=== PATIENT | female | born 1975 | race Caucasian/White ===

== ENCOUNTER 2019-07-26 00:05 | Inpatient (IN) | payer SELFPAY ==
[2019-07-26] MEDS ORDERED: Ketorolac Tromethamine 30 MG/ML VIAL ONE (01:57)
[2019-07-26] MEDS ORDERED: Acetaminophen 325 MG TAB PO PRN (03:29)
[2019-07-26] MEDS ORDERED: Ondansetron PF 4 MG/2 ML Vial IVP PRN ×2 (03:29→03:43)
[2019-07-26] MEDS ORDERED: Sodium Chloride 0.9% 1,000 ML IV SCH ×4 (03:29→19:30)
[2019-07-26] MEDS ORDERED: Ondansetron ODT 4 MG TAB SL PRN (03:29)
[2019-07-26] MEDS ORDERED: Ibuprofen 200 MG TAB PO PRN (03:43)
[2019-07-26] MEDS ORDERED: Ondansetron ODT 4 MG TAB PO PRN (03:43)
[2019-07-26] MEDS ORDERED: hydrALAZINE 20 MG/ML VIAL SLOW IVP PRN (03:43)
[2019-07-26 04:04] VITALS: BMI 26.7
[2019-07-26] MEDS ORDERED: Ketorolac Tromethamine 30 MG/ML VIAL IVP SCH (04:15)
[2019-07-26] MEDS: Sodium Chloride 0.9% 1,000 ML IV SCH ×4 (04:45→23:10)
--- NOTE | 2019-07-26 05:23 | HP ---
PRIMARY CARE PROVIDER: Dr. Millard at the [facility]. CHIEF COMPLAINT: Fever and cough. HISTORY OF PRESENT ILLNESS: This is a 44-year-old female, who presented to [facility] Emergency Department in transfer from [facility] in [place], [place] after initially presenting with fever, body aches, and chills for approximately 1 week. The patient states she saw her primary care provider on 07/22 with persistent cough, general body aches, taking NyQuil and DayQuil for some relief of her symptoms. The patient states her symptoms progressed with limited activity, general fatigue and fever. The patient's cough persisted and patient generally was unable to continue doing normal activities. The patient denied any known sick contacts, travel history, or family members with similar symptoms. The patient states she was treated for pneumonia as a teenager, but no recurrence. The patient does smoke up to half a pack of cigarettes daily, but denied any chronic lung conditions. In the emergency room, the patient underwent general evaluation including plain radiographs of the chest showing dense consolidation of the right middle lobe. CT angiogram of the chest was also performed showing evidence of dense consolidation of the right middle lobe. The patient received intravenous normal saline as well as potassium bicarbonate, ibuprofen, Zofran, and fentanyl. The patient also received IV Rocephin and Zithromax after meeting sepsis criteria. PAST MEDICAL HISTORY: 1. Tobacco abuse. 2. Hypertension. PAST SURGICAL HISTORY: 1. Status post section x2. 2. Status post bilateral tubal ligation. CURRENT MEDICATIONS: Losartan/HCTZ 100/25 mg 1 tablet p.o. daily. ALLERGIES: NO KNOWN DRUG ALLERGIES. FAMILY HISTORY: Positive for hypertension. SOCIAL HISTORY: Resides in [place], [place]. . Smokes up to half a pack of cigarettes daily. Occasional alcohol use. No illicit drug use. REVIEW OF SYSTEMS: CONSTITUTIONAL: Negative for weight loss or gain, ability to conduct usual activities. SKIN: Negative for rash, itching. EYES: Negative for double vision, pain. ENT/MOUTH: Negative for nose bleeding, neck stiffness, pain, tenderness. CARDIOVASCULAR: Negative for palpitations, dyspnea on exertion, orthopnea. RESPIRATORY: Negative for shortness of breath, wheezing, cough, hemoptysis, fever or night sweats. GASTROINTESTINAL: Negative for poor appetite, abdominal pain, heartburn, nausea, vomiting, constipation, or diarrhea. GENITOURINARY: Negative for urgency, frequency, dysuria, nocturia. MUSCULOSKELETAL: Negative for pain, swelling. NEUROLOGIC/PSYCHIATRIC: Negative for anxiety, depression. ALLERGY/IMMUNOLOGIC: Negative for skin rash, bleeding tendency. Otherwise negative except as stated per HPI. PHYSICAL EXAMINATION: VITAL SIGNS: On admission, blood pressure 104/61, pulse 75, respiratory rate 18, temperature 99 degrees Fahrenheit, and O2 saturation 96% on room air. GENERAL APPEARANCE: This is a 44-year-old female, alert and oriented x3, pleasant, in mild distress. HEENT: Pupils are equal, round, reactive to light and accommodation. Extraocular muscles are intact. No scleral icterus. No conjunctival injection. Nares patent. OP is clear. Teeth in fair repair. NECK: Supple. No cervical adenopathy. No thyromegaly. No carotid bruits. No JVD appreciated. Cervical spine with full active and passive range of motion. No meningeal signs noted. CHEST: Diminished breath sounds in the bases bilaterally. CARDIOVASCULAR: S1, S2 with tachycardia. ABDOMEN: Rounded, soft, nontender, and nondistended. Bowel sounds are positive in all 4 quadrants. There is no hepatosplenomegaly. No abdominal bruits. No rebound or guarding appreciated. EXTREMITIES: Warm and dry with fair turgor. No clubbing, cyanosis, or asymmetric edema appreciated. Pulses palpable distally at the dorsalis pedis, posterior tibial, and popliteal arteries bilaterally. Capillary refill less than 2 seconds. NEUROLOGIC: Cranial nerves 2 through 12 are grossly intact. No focal or lateralizing signs appreciated. PERTINENT LABORATORY AND X-RAY FINDINGS: Sodium 133, potassium 3.1, chloride 101, CO2 of 19, BUN 15, creatinine 0.93, calcium 9.3. LFTs within normal limits. Glucose 185. Influenza A and B antigen negative on 07/25/2019. Troponin I negative x1. CBC showed a white blood cell count of 36.1, hemoglobin 10.6, hematocrit 31, MCV 85, platelet count 308 with 89% neutrophils. Lactic acid level 1.3. PT 16.3, INR 1.3. CT of the chest dated 07/25/2019, showed dense consolidation in the medial aspect of the right middle lobe. 1 cm poorly defined hypodense in the right hepatic lobe. CT of the abdomen and pelvis showed enlarged heterogeneous uterus consistent with a solitary fibroid. EKG dated 07/25/2019, by my interpretation shows sinus tachycardia with heart rates in the 110s. Normal R-wave progression noted in the precordial leads. Normal axis. No acute ST-T wave changes appreciated. ASSESSMENT AND PLAN: 1. Sepsis secondarily to pneumonia. The patient will be admitted to the medical floor. We will continue IV fluids with normal saline at 150 mL/h. Continue Rocephin 2 g IV q.24 hours with additional Zithromax 500 mg IV daily. Blood and urine cultures pending. Continue aggressive supportive management and monitor clinical response. 2. Hypotension secondary to #1. Improved and responsive to IV fluid administration. We will continue IV fluids as outlined previously and hold home blood pressure medications. Serial blood pressure monitoring. 3. Tobacco abuse. We will offer smoking cessation resources prior to discharge. 4. Sinus tachycardia secondarily to #1. Continue general monitoring. Continue IV fluids and monitor clinical response. 5. Prophylaxis. SCDs while in bed. Influenza and pneumonia vaccinations prior to discharge. CODE STATUS: Full. Surrogate medical decision maker is the patient's spouse. Job ID: [id number]
[2019-07-26] MEDS: Famotidine 20 MG TAB PO SCH ×2 (08:07→20:10)
--- NOTE | 2019-07-26 08:11 | RAD ---
Portable chest: HISTORY: Pneumonia follow-up COMPARISON: none FINDINGS:There is suggestion of hazy infiltrate in the right lung base. No confluent consolidation. N o effusion. Upper lung zones are clear. IMPRESSION:Question hazy infiltrate in the right lung base. Suggest follow-up upright PA and lateral views of chest.
[2019-07-26] MEDS ORDERED: FLU VACC QS2019-20(6MOS UP)/PF 60 MCG/0.5 ML SYRINGE IM ONE (09:00)
[2019-07-26 10:05] LABS: Hemoglobin 8.6 g/dL (12.0-16.0); Mean Corpuscular HGB CONC 33.2 g/dL (32.0-36.0); Mean Corpuscular Volume 90.3 fL (78.0-98.0); Mean Platelet Volume 7.7 fL (7.4-10.4); Platelet Count 259 thou/uL (130-400); RBC Distribution Width 14.5 % (11.5-14.5); Red Blood Cell (RBC) Count 2.87 mill/uL (4.20-5.40)
[2019-07-26] MEDS: Benzonatate 100 MG CAP PO SCH ×3 (10:18→20:09)
[2019-07-26] MEDS: guaiFENesin ER 600 MG TAB PO SCH ×2 (10:18→20:11)
[2019-07-26 10:28] LABS: Band 9 % (5-11); Eosinophils 1 % (0-10); Lymphocytes 3 % (21-51); MDiff Complete? YES; Monocytes 2 % (0-10); Neutrophil 84 % (42-75); Platelet Morphology Comment Appears Adequate; RBC Morphology Normal; Reactive Lymphocytes 1 % (0-10); White Blood Cell (WBC) Count 33.6 thou/uL (4.8-10.8)
[2019-07-26 10:29] LABS: ALT (SGPT) 11 U/L (8-55); AST (SGOT) 9 U/L (5-34); Albumin 2.7 g/dL (3.5-5.0); Alkaline Phosphatase 72 U/L (40-110); Anion Gap 9 mmol/L (10-20); BUN (Urea Nitrogen) 15 mg/dL (7.0-18.7); Bilirubin, Total 0.4 mg/dL (0.2-1.2); Calc. Creatinine Clearance 114 mL/min (70-130); Calcium 7.2 mg/dL (7.8-10.44); Carbon Dioxide 18 mmol/L (22-29); Chloride 112 mmol/L (98-107); Estimated GFR-MDRD 84; Globulin 2.5 g/dL (2.4-3.5); Glucose 116 mg/dL (70-105); Potassium 3.4 mmol/L (3.5-5.1); Protein, Total 5.2 g/dL (6.0-8.3); Sodium 136 mmol/L (136-145)
[2019-07-26 10:45] LABS: HIV (1/2) Antibody/Antigen Non-Reactive (NonReactive)
[2019-07-26] MEDS: Ketorolac Tromethamine 30 MG/ML VIAL IVP SCH ×3 (11:37→23:35)
--- NOTE | 2019-07-26 12:29 | CON ---
DATE OF CONSULTATION: 07/26/2019 This consultation is for Dr. Davila. REASON FOR CONSULTATION: Pneumonia. HISTORY OF PRESENT ILLNESS: Su is A 44-year-old female from [facility]. She has been feeling ill since Monday. She went and saw her Family Medicine doctor and had a workup for strep throat, which was negative. She was sent home on [id number] therapy. She has worsened over the last 2 days to the point, where she came to the hospital. She had a CT scan done in [place], which is not available for my review. The scan apparently showed a right middle lobe infiltrate. Chest x-ray here also shows some haziness in the right lower lobe. She was given some antibiotics. She does feel better. She was able to keep her meal down this morning and she has defervesced. Associated symptoms included fever, shortness of breath, and right-sided chest pain. PAST MEDICAL HISTORY: Hypertension. PAST SURGICAL HISTORY: 1. . 2. Tubal ligation. MEDICATIONS: Prior to admission, losartan/hydrochlorothiazide 100/25 one daily. ALLERGIES: NONE. FAMILY MEDICAL HISTORY: Remarkable for hypertension. SOCIAL HISTORY: She is . Smokes about a half pack per day. 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 She has several other children, some grown, some still at home. REVIEW OF SYSTEMS: Twelve-point review of systems otherwise negative except for that mentioned above. PHYSICAL EXAMINATION: VITAL SIGNS: Her temperature is 98.5, pulse 96, respirations 18, O2 saturation 95%, and blood pressure 95/61. GENERAL: She appears acutely ill, but in no obvious respiratory distress. HEENT: Pupils are reactive. Sclerae are anicteric. Oropharynx is clear. NECK: No adenopathy or JVD. LUNGS: She has inspiratory crackles anteriorly on the right. Posteriorly, she has clear bilaterally. CARDIAC: S1 and S2. Regular. ABDOMEN: Soft, nontender, and nondistended. EXTREMITIES: No clubbing, cyanosis, or edema. NEUROLOGIC: Nonfocal. SKIN: Shows no lesions. LABORATORY DATA: Sodium 136, potassium 3.4, chloride 112, CO2 of 18, BUN 15, creatinine 0.7, and glucose 116. Cortisol level 25.6. HIV test nonreactive. White blood cell count 33.6, hematocrit 26, and platelet count 259. I reviewed her chest x-ray personally. Cultures have not resulted yet. ASSESSMENT: Community-acquired pneumonia. Most likely organism would be Pneumococcus. RECOMMENDATION: I agree with current treatment including the azithromycin, ceftriaxone, and oxygen. There is really no role for serial x-rays unless she develops signs indicative of pleural effusion. Hopefully, she will improve to the point where she can be discharged in 1 to 2 days. Job ID: [id number]
--- NOTE | 2019-07-26 13:54 | PDOC.HOSPP ---
- Subjective Encounter Date: 07/26/19 Encounter Time: 07:35 Subjective: sob+, has trouble bringing up sputum - Objective Vital Signs & Weight: Vital Signs (12 hours) Temp Pulse Resp BP BP Pulse Ox 07/26/19 12:34 98 07/26/19 12:31 95 16 98 07/26/19 11:42 98.5 F 96 18 95/61 95 07/26/19 08:00 93 L 07/26/19 07:17 98.9 F 116 H 17 90/54 L 93 L 07/26/19 06:54 96 07/26/19 06:27 98.8 F 113 H 20 91/56 L 96 07/26/19 05:51 100.1 F H 120 H 22 H 88/84 L 92 L 07/26/19 03:25 99.3 F 106 H 18 84/50 L 97 Weight Weight 165 lb 11.2 oz I&O: 07/25/19 07/26/19 07/27/19 06:59 06:59 06:59 Intake Total 3830 480 Balance 3830 480 Result Diagrams: 07/26/19 09:45 07/26/19 09:45 Hospitalist ROS - Medication Medications: Active Medications Generic Name Dose Route Start Last Admin Trade Name Freq PRN Reason Stop Dose Admin Albuterol/Ipratropium 3 ml 07/26/19 13:00 07/26/19 12:31 Duoneb NEB 3 ml [id number] MARTY Administration Benzonatate 100 mg 07/26/19 09:00 07/26/19 10:18 Tessalon PO 100 mg TID MARTY Administration Famotidine 20 mg 07/26/19 09:00 07/26/19 08:07 Pepcid PO 20 mg BID MARTY Administration Guaifenesin 600 mg 07/26/19 09:00 07/26/19 10:18 Mucinex PO 600 mg Q12HR MARTY Administration Sodium Chloride 1,000 mls @ 150 mls/hr 07/26/19 03:45 07/26/19 11:17 Normal Saline 0.9% IV 1,000 mls .Q6H40M MARTY Administration Ketorolac Tromethamine 30 mg 07/26/19 12:00 07/26/19 11:37 Toradol IVP 07/31/19 12:01 30 mg Q6HR MARTY Administration - Exam General Appearance: awake alert, ill appearing Eye: PERRL, anicteric sclera ENT: no oropharyngeal lesions, moist mucosa Neck: supple, symmetric Heart: RRR, no murmur Respiratory: no wheezes, no rales, rhonchi Gastrointestinal: soft, non-tender, non-distended, normal bowel sounds Extremities: no cyanosis, 1+ LE edema Neurological: cranial nerve grossly intact, no focal deficits Psychiatric: normal affect, A&O x 3 Hosp A/P (1) PNA (pneumonia) Code(s): J18.9 - PNEUMONIA, UNSPECIFIED ORGANISM Status: Acute Qualifiers: Laterality: right Lung location: middle lobe of lung (2) HTN (hypertension) Code(s): I10 - ESSENTIAL (PRIMARY) HYPERTENSION Status: Chronic Qualifiers: Hypertension type: essential hypertension Qualified Code(s): I10 - Essential (primary) hypertension (3) Sepsis Code(s): A41.9 - SEPSIS, UNSPECIFIED ORGANISM Status: Acute Qualifiers: Sepsis type: sepsis due to unspecified organism (4) Tobacco abuse Code(s): Z72.0 - TOBACCO USE Status: Chronic - Plan has recieved fluid resuscitation, sbp around 100-110, off antihtn meds likely has leukemoid reaction viral pcr pending on ceftriaxone, zithromax, nebs, toradol prn HIV is -ve d/w
[2019-07-26] MEDS: Acetaminophen 500 MG TAB PO PRN (17:13)
[2019-07-26] MEDS: cefTRIAXone\\ROCEPHIN 2 GM in Sodium Chloride 0.9% 100 ML IVPB SCH (20:38)
[2019-07-26] MEDS: Azithromycin 500 MG in Sodium Chloride 0.9% 250 ML 250 ML IVPB SCH (21:22)
[2019-07-26] MEDS ORDERED: Albumin 25% 25 GM/100 ML BOT IVPB SCH (22:00)
[2019-07-27] MEDS: Ketorolac Tromethamine 30 MG/ML VIAL IVP SCH ×4 (05:19→23:44)
[2019-07-27] MEDS: Sodium Chloride 0.9% 1,000 ML IV SCH ×3 (05:24→17:46)
[2019-07-27 06:44] LABS: Band 16 % (5-11); Hemoglobin 8.4 g/dL (12.0-16.0); Lymphocytes 4 % (21-51); MDiff Complete? YES; Mean Corpuscular HGB CONC 33.5 g/dL (32.0-36.0); Mean Corpuscular Volume 89.3 fL (78.0-98.0); Metamyelocyte 1 % (0-0); Monocytes 2 % (0-10); Neutrophil 77 % (42-75); Platelet Count 271 thou/uL (130-400); Platelet Morphology Comment Appears Adequate; RBC Distribution Width 14.5 % (11.5-14.5); Red Blood Cell (RBC) Count 2.81 mill/uL (4.20-5.40); White Blood Cell (WBC) Count 24.4 thou/uL (4.8-10.8)
[2019-07-27 07:01] LABS: ALT (SGPT) 10 U/L (8-55); AST (SGOT) 15 U/L (5-34); Albumin 2.9 g/dL (3.5-5.0); Alkaline Phosphatase 106 U/L (40-110); Anion Gap 11 mmol/L (10-20); BUN (Urea Nitrogen) 14 mg/dL (7.0-18.7); Bilirubin, Total 0.2 mg/dL (0.2-1.2); Calc. Creatinine Clearance 133 mL/min (70-130); Calcium 6.9 mg/dL (7.8-10.44); Carbon Dioxide 16 mmol/L (22-29); Chloride 116 mmol/L (98-107); Estimated GFR-MDRD Greater than 90; Globulin 2.5 g/dL (2.4-3.5); Glucose 109 mg/dL (70-105); Potassium 3.4 mmol/L (3.5-5.1); Protein, Total 5.4 g/dL (6.0-8.3); Sodium 140 mmol/L (136-145)
[2019-07-27] MEDS: Famotidine 20 MG TAB PO SCH ×2 (07:44→20:16)
[2019-07-27] MEDS: Benzonatate 100 MG CAP PO SCH ×3 (07:44→20:16)
[2019-07-27] MEDS: guaiFENesin ER 600 MG TAB PO SCH ×2 (07:44→20:17)
[2019-07-27] MEDS ORDERED: Potassium Chloride 20 MEQ TAB PO SCH (09:00)
--- NOTE | 2019-07-27 11:40 | PRG ---
DATE OF SERVICE: 07/27/2019 SUBJECTIVE: Ms. Hernandez feels better today. She is very anxious to go home by tomorrow. OBJECTIVE: VITAL SIGNS: Temperature is 98.1, pulse 98, respirations 19, O2 saturation 91% on room air, blood pressure 101/67. HEENT: Unremarkable. NECK: No adenopathy or JVD. CHEST: Clear on the left. She has some crackles on the right anteriorly. ABDOMEN: Soft. EXTREMITIES: No edema. LABORATORY DATA: White blood cell count 24.4, hematocrit 25.1, and platelet count 271. Sodium 140, potassium 3.4, chloride 116, CO2 of 16, BUN 14, creatinine 0.6, glucose 109. ASSESSMENT: Right-sided pneumonia, likely pneumococcus. She is responding to antibiotics appropriately. PLAN: By tomorrow, she should be able to convert over to oral azithromycin and oral Omnicef. She needs to be treated for 7 to 10 days provided her hypoxemia is not an issue, she can go home tomorrow morning. Job ID: [id number]
--- NOTE | 2019-07-27 13:59 | PDOC.HOSPP ---
- Subjective Encounter Date: 07/27/19 Encounter Time: 09:40 Subjective: Pt seen for followup re: pneumonia. Feels slightly better. - Objective Vital Signs & Weight: Vital Signs (12 hours) Temp Pulse Resp BP Pulse Ox 07/27/19 12:28 92 16 92 L 07/27/19 11:39 98.1 F 99 18 110/70 94 L 07/27/19 08:00 91 L 07/27/19 07:28 98.1 F 98 19 101/67 91 L 07/27/19 06:48 92 L 07/27/19 06:46 95 16 92 L 07/27/19 04:00 98.4 F 95 18 100/65 92 L Weight Weight 165 lb 11.2 oz I&O: 07/26/19 07/27/19 07/28/19 06:59 06:59 06:59 Intake Total 3830 3430 240 Balance 3830 3430 240 Result Diagrams: 07/27/19 06:10 07/27/19 06:10 Additional Labs: Labs and MARs reviewed by me. Hospitalist ROS - Review of Systems Respiratory: reports: cough, dry. denies: shortness of breath, hemoptysis, SOB with excertion, pleuritic pain, sputum, wheezing Cardiovascular: denies: chest pain, palpitations, orthopnea, paroxysmal noc. dyspnea, edema, light headedness - Medication Medications: Active Medications Generic Name Dose Route Start Last Admin Trade Name Freq PRN Reason Stop Dose Admin Acetaminophen 1,000 mg 07/26/19 03:43 07/26/19 17:13 Tylenol PO 1,000 mg Q6H PRN Administration Mild Pain (1-3) Albuterol/Ipratropium 3 ml 07/26/19 13:00 07/27/19 12:28 Duoneb NEB 3 ml [id number] MARTY Administration Benzonatate 100 mg 07/26/19 09:00 07/27/19 07:44 Tessalon PO 100 mg TID MARTY Administration Famotidine 20 mg 07/26/19 09:00 07/27/19 07:44 Pepcid PO 20 mg BID MARTY Administration Guaifenesin 600 mg 07/26/19 09:00 07/27/19 07:44 Mucinex PO 600 mg Q12HR MARTY Administration Azithromycin 500 mg/ Sodium 250 mls @ 250 mls/hr 07/26/19 22:00 07/26/19 21: 22 Chloride IVPB 250 mls Q24HR@2200 MARTY Administration Ceftriaxone Sodium 2 gm/ 100 mls @ 200 mls/hr 07/26/19 21:00 07/26/19 20:38 Sodium Chloride IVPB 100 mls Q24HR@2100 MARTY Administration Sodium Chloride 1,000 mls @ 150 mls/hr 07/26/19 03:45 07/27/19 12:41 Normal Saline 0.9% IV Not Given .Q6H40M MARTY Ketorolac Tromethamine 30 mg 07/26/19 12:00 07/27/19 12:34 Toradol IVP 07/31/19 12:01 30 mg Q6HR MARTY Administration - Exam General Appearance: NAD Eye: anicteric sclera ENT: moist mucosa Neck: supple, symmetric Heart: RRR Respiratory: wheezes Gastrointestinal: soft, non-tender Extremities: no clubbing Psychiatric: normal affect, normal behavior Hosp A/P (1) PNA (pneumonia) Code(s): J18.9 - PNEUMONIA, UNSPECIFIED ORGANISM Status: Acute Qualifiers: Laterality: right Lung location: middle lobe of lung (2) Hypokalemia Code(s): E87.6 - HYPOKALEMIA Status: Acute (3) HTN (hypertension) Code(s): I10 - ESSENTIAL (PRIMARY) HYPERTENSION Status: Chronic Qualifiers: Hypertension type: essential hypertension Qualified Code(s): I10 - Essential (primary) hypertension (4) Tobacco abuse Code(s): Z72.0 - TOBACCO USE Status: Chronic - Plan continue antibiotics, out of bed/ambulate CFlinically improving. Replace potassium. Ambulate patient. HTN controlled.
[2019-07-27] MEDS: cefTRIAXone\\ROCEPHIN 2 GM in Sodium Chloride 0.9% 100 ML IVPB SCH (20:16)
[2019-07-27] MEDS: Azithromycin 500 MG in Sodium Chloride 0.9% 250 ML 250 ML IVPB SCH (21:15)
[2019-07-27] MEDS: Acetaminophen 500 MG TAB PO PRN (22:18)
[2019-07-28] MEDS: Sodium Chloride 0.9% 1,000 ML IV SCH ×3 (01:28→09:44)
[2019-07-28] MEDS: Acetaminophen 500 MG TAB PO PRN (04:49)
[2019-07-28] MEDS: Ketorolac Tromethamine 30 MG/ML VIAL IVP SCH ×2 (05:45→11:34)
[2019-07-28 06:06] LABS: Anion Gap 11 mmol/L (10-20); BUN (Urea Nitrogen) 10 mg/dL (7.0-18.7); Calc. Creatinine Clearance 133 mL/min (70-130); Calcium 7.5 mg/dL (7.8-10.44); Carbon Dioxide 19 mmol/L (22-29); Chloride 114 mmol/L (98-107); Estimated GFR-MDRD Greater than 90; Glucose 113 mg/dL (70-105); Potassium 3.1 mmol/L (3.5-5.1); Sodium 141 mmol/L (136-145)
[2019-07-28 06:09] LABS: Band 8 % (5-11); Eosinophils 5 % (0-10); Lymphocytes 4 % (21-51); MDiff Complete? YES; Mean Corpuscular Hemoglobin 30.7 pg (27.0-31.0); Mean Corpuscular Volume 87.7 fL (78.0-98.0); Mean Platelet Volume 7.9 fL (7.4-10.4); Metamyelocyte 1 % (0-0); Monocytes 6 % (0-10); Myelocyte 1 % (0-0); Neutrophil 75 % (42-75); Nucleated RBC 1 % (0); Platelet Count 304 thou/uL (130-400); Platelet Morphology Comment Appears Adequate; RBC Distribution Width 14.5 % (11.5-14.5); RBC Morphology Normal; White Blood Cell (WBC) Count 13.5 thou/uL (4.8-10.8)
[2019-07-28] MEDS: Benzonatate 100 MG CAP PO SCH (08:06)
[2019-07-28] MEDS: Famotidine 20 MG TAB PO SCH (08:07)
[2019-07-28] MEDS: guaiFENesin ER 600 MG TAB PO SCH (08:09)
[2019-07-28] MEDS ORDERED: Cefdinir 300 MG CAP PO SCH ×2 (09:45→21:00)
[2019-07-28] MEDS ORDERED: Potassium Chloride 20 MEQ TAB PO SCH (10:30)
[2019-07-28] MEDS ORDERED: Azithromycin 200 MG/5 ML Oral Suspension PO SCH (11:45)
[2019-07-28 11:56] VITALS: BP 154/76; TEMP 98.7
[2019-07-28] MEDS ORDERED: Azithromycin 250 MG TAB PO SCH (12:00)
--- NOTE | 2019-07-28 12:00 | PRG ---
DATE OF SERVICE: 07/28/2019 SUBJECTIVE: She is doing well and she is very anxious to go home. OBJECTIVE: VITAL SIGNS: On exam, temperature 98.2, pulse 105, respirations 18, O2 saturation 98% on room air, blood pressure 145/78. HEENT: Unremarkable. NECK: No adenopathy or JVD. CHEST: Clear to auscultation. CARDIAC: S1 and S2, regular. ABDOMEN: Soft. EXTREMITIES: No edema. LABORATORY DATA: White blood cell count 13.5, hematocrit 22.8, and platelet count 304. Sodium 141, potassium 3.1, chloride 114, CO2 of 19, BUN 10, creatinine 0.6 and glucose 113. ASSESSMENT: 1. Right middle lobe pneumonia. 2. She has a fairly significant anemia. PLAN: Plan from a respiratory standpoint, she is cleared to go home. She should finish out Omnicef and Zithromax. I would stop her IV fluids. Her anemia probably warrants further workup. She needs to follow up with me in about 3 to 4 weeks to have a chest x-ray repeated. Job ID: [id number]
--- NOTE | 2019-07-28 19:01 | DIS ---
DATE OF ADMISSION: 07/26/2019 DATE OF DISCHARGE: 07/28/2019 PRIMARY CARE PROVIDER: Nicanor Asif. DISCHARGE DIAGNOSES: 1. Sepsis. 2. Sepsis secondary to pneumonia. 3. Hypokalemia. CONSULTATIONS DURING THIS HOSPITALIZATION: Pulmonary and Critical Care Medicine, Dr. Krishan Rodgers. CONDITION OF PATIENT ON THE DAY OF DISCHARGE: Stable. I assessed Ms. Hernandez on the day of discharge. She denies any chest pain or shortness of breath. Vital signs are stable. S1 and S2 are heard, regular. Lungs are clear to auscultation bilaterally. DISCHARGE MEDICATIONS: 1. Losartan/hydrochlorothiazide one tablet daily. 2. Azithromycin 250 mg daily for 4 more days. 3. Omnicef 300 mg 2 times a day for 7 more days. POST-DISCHARGE FOLLOWUP: The patient is advised to follow up with primary care provider in 3 to 5 days' time. HOSPITAL COURSE: Ms. Hernandez is a pleasant 44-year-old lady who was admitted to [facility] on 07/26/2019, for sepsis secondary to pneumonia. Please refer to Dr. Trevizo's history and physical note dated 07/26/2019, for further details. She improved with intravenous fluids and antibiotics. She has been seen by Pulmonary and Critical Care Medicine. She has been cleared for discharge by Pulmonary Medicine. She is being discharged home on oral antibiotics. She received supplemental potassium for hypokalemia. On the day of discharge, she has sodium 141, potassium 3.1, following which she received potassium supplementation, creatinine 0.64. White count 13,500, hemoglobin 8.0, and platelet count 304,000. Many thanks for allowing me to participate in your patient's care. Please feel free to contact me with any questions or concerns. She has been advised to stop smoking. ACTIVITY: As tolerated. DIET: Heart healthy. DISCHARGE DESTINATION: Home. TIME SPENT: Total amount of time spent coordinating this discharge: 32 minutes. Job ID: [id number]
[2019-07-29] MEDS ORDERED: Azithromycin 250 MG TAB PO SCH ×2 (09:00)
[2019-07-29] MEDS ORDERED: Azithromycin 200 MG/5 ML Oral Suspension PO SCH (09:00)
[2019-07-31] MEDS ORDERED: Ibuprofen 200 MG TAB PO PRN (12:00)
== END 2019-07-28 12:28 | disposition home or self-care (01) | DRG 871 ==
LOC: ERS 00:05 → T4-A 03:22
PROVIDERS: ADMIT Family Medicine; ATTEND Family Medicine
PROC: 3E02340 Introduction of Influenza Vaccine into Muscle, Percutaneous Approach (ICD-10-PCS; principal; 2019-07-26)
PROC: 3E0234Z Introduction of Serum, Toxoid and Vaccine into Muscle, Percutaneous Approach (ICD-10-PCS; 2019-07-26)
DX: A41.9 Sepsis, unspecified organism (principal); J18.1 Lobar pneumonia, unspecified organism; Z23 Encounter for immunization; I10 Essential (primary) hypertension; F17.210 Nicotine dependence, cigarettes, uncomplicated; R09.02 Hypoxemia; E87.6 Hypokalemia; D64.9 Anemia, unspecified; Z79.899 Other long term (current) drug therapy; Z98.51 Tubal ligation status
CPT/HCPCS: 36415; 71045; 80048; 80053; 82533; 83605; 85007; 85025; 85027; 87389; 87633; 94640; J0456; J0696; J1885; J3490; J7050; J7620; P9047

== ENCOUNTER 2023-09-13 05:50 | Day surgery (SDC) | payer OTHER ==
[2023-09-11 15:53] VITALS: BMI 31.3
[2023-09-13] MEDS ORDERED: PROPOFOL 60 ML ONE (07:32)
[2023-09-13] MEDS ORDERED: Ondansetron PF 4 MG/2 ML Vial ONE (07:33)
[2023-09-13] MEDS ORDERED: Lidocaine 1% PF 5 ML VIAL ONE (07:33)
[2023-09-13] MEDS ORDERED: PROPOFOL 20 ML ONE (08:02)
== END 2023-09-13 09:09 | disposition home or self-care (01) ==
LOC: SDC 05:50
PROVIDERS: ATTEND Internal Medicine
PROC: 0DBP8ZX Excision of Rectum, Via Natural or Artificial Opening Endoscopic, Diagnostic (ICD-10-PCS; principal; 2023-09-13)
DX: Z12.11 Encounter for screening for malignant neoplasm of colon (principal); D12.8 Benign neoplasm of rectum; D12.6 Benign neoplasm of colon, unspecified; K57.30 Diverticulosis of large intestine without perforation or abscess without bleeding; K64.4 Residual hemorrhoidal skin tags; K64.8 Other hemorrhoids
CPT/HCPCS: 88305; J2405; J2704